=== PATIENT | female | born 1990 | race Caucasian/White ===

== ENCOUNTER 2016-11-12 18:20 | Emergency (ER) | payer BC ==
[2016-11-12 18:27] VITALS: BP 108/66
--- NOTE | 2016-11-12 19:00 | UC ---
Complaint Female HPI - HPI Summary HPI Summary: ONE WEEK OF VAGINAL BURNING. NO DISCHARGE. NO RECENT ANTIBIOTICS. NO PAIN WITH URINATION. NO SEXUAL PARTNER IN 1YEAR. TOOK OTC MONOSTAT. NO CHANGE. NO BACK PAIN. NO ABDOMINAL PAIN. - History Of Current Complaint Chief Complaint: [facility] Stated Complaint: BURNING URINATION Time Seen by Provider: 11/12/16 18:25 Hx Obtained From: Patient Hx Last Menstrual Period: 10/31/16 ?: No Onset/Duration: Gradual Onset, Lasting Weeks, Still Present Timing: Lasting Weeks Severity Initially: Mild Severity Currently: Mild Character: Burning Aggravating Factor(s): Nothing Associated Signs And Symptoms: Negative: Fever, Back Pain, Vaginal Bleeding/ Discharge, Vaginal Discharge - VAGINAL BURNING; NO LESIONS, Nausea, Vomiting(# Of Episodes =), Genital Swelling - Risk Factors Ectopic Risk Factor: Negative Ovarian Torsion Risk Factor: Negative - Allergies/Home Medications Allergies/Adverse Reactions: Allergies Allergy/AdvReac Type Severity Reaction Status Date / Time No Known Allergies Allergy Verified 11/12/16 18:27 PMH/Surg Hx/FS Hx/Imm Hx Previously Healthy: Yes - Surgical History Surgical History: None - Family History Known Family History: Negative: Renal Disease - Social History Lives: With Family Alcohol Use: Daily Substance Use Type: None Smoking Status (MU): Never Smoked Tobacco Review of Systems Constitutional: Negative Skin: Negative Eyes: Negative ENT: Negative Respiratory: Negative Cardiovascular: Negative Gastrointestinal: Negative Genitourinary: Other - VAGINAL BURNING Motor: Negative Neurovascular: Negative Musculoskeletal: Negative Neurological: Negative Psychological: Negative All Other Systems Reviewed And Are Negative: Yes Physical Exam Triage Information Reviewed: Yes Appearance: Well-Appearing, No Pain Distress, Well-Nourished Vital Signs: Initial Vital Signs Temp 99.3 F 11/12/16 18:22 Pulse 77 11/12/16 18:22 Resp 16 11/12/16 18:22 BP 108/66 11/12/16 18:22 Pulse Ox 100 11/12/16 18:22 Vital Signs Reviewed: Yes Eye Exam: Normal ENT Exam: Normal Dental Exam: Normal Neck exam: Normal Neck: Positive: Supple Respiratory Exam: Normal Respiratory: Positive: Chest non-tender, Lungs clear Cardiovascular Exam: Normal Cardiovascular: Positive: RRR, No Murmur Abdominal Exam: Normal Musculoskeletal Exam: Normal Musculoskeletal: Positive: Strength Intact Neurological Exam: Normal Psychological Exam: Normal Skin Exam: Normal Complaint Female Dx - Course Course Of Treatment: PATIENT DEFERRED PELVIC EXAM; IN CONTEXT OF DEFERRED PELVIC I RECOMMENDED SELF-SWABBING AFFIRM. I TREATED FOR BV WITH DIFFLUCAN FOR POTENTIAL CANDIDIASIS AND REFERRED TO DEHYDRATING PRESS OPERATOR FOR FOLLOW UP. - Differential Dx/Diagnosis Differential Diagnosis/HQI/PQRI: Cervicitis, Pelvic Inflammatory Disease, Retained Foreign Body, Sexually Transmitted Disease, Urinary Tract Infection Provider Diagnoses: VAGINITIS Discharge - Discharge Plan Condition: Stable Disposition: HOME Prescriptions: Fluconazole [Diflucan 150 MG (NF)] 150 mg PO ONCE #1 tab Metronidazole [Flagyl 500 MG TAB] 500 mg PO TID #21 tab Patient Education Materials: Bacterial Vaginosis (ED), Vulvovaginal Candidiasis (ED), Vaginitis (ED) Referrals: [facility] [Outside] Codie Rogers MD [Medical Doctor] -
--- NOTE | 2016-11-13 15:35 | UC ---
Progress - Progress Note Progress Note: Ms Get Rodriguez was evaluated at the urgent care yesterday to r/o BV and gaurav vaginosis. Pt was given prophylactic treatment for both By Provider Sebas PAT. However, the specimen collected was sent to the lab in the wrong swab. Today lab wanted to know if they needed a GC ordered. However since Pt has no HX of STD's and has been w/o a partner for the past year, I called the lab and advised them they can disregard the specimen.
== END 2016-11-12 19:10 | disposition home or self-care (01) ==
LOC: UCEAST 18:20
DX: N76.0 Acute vaginitis (principal); Z32.02 Encounter for pregnancy test, result negative
CPT/HCPCS: 81003; 84702; 99202; G0463